=== PATIENT | female | born 1990 | race Caucasian/White ===

== ENCOUNTER 2019-11-22 08:03 | Inpatient (IN) | payer BC ==
[2019-11-22] MEDS ORDERED: Misoprostol TAB* 100 MCG VAGINAL ONE (09:10)
[2019-11-22] MEDS ORDERED: Buffered Lidocaine 1% SYRIN* 1 ML/SYRINGE INTRADERM ONE (09:10)
[2019-11-22] MEDS ORDERED: Lactated Ringers 1000 ML Bag* 1,000 ML IV ONE (09:10)
[2019-11-22 09:55] LABS: Urine Benzodiazepine Screen None Detected (None Detect); Urine Opiates Screen None Detected (None Detect)
--- NOTE | 2019-11-22 11:11 | PTEDU ---
Patient Name: LILLI ESTRELLA LILLI ESTRELLA selected video: Never Ever Shake a Baby to view on 11/22/2019 at 11:11:[address] [id number]
--- NOTE | 2019-11-22 11:38 | PTEDU ---
Patient Name: LILLI ESTRELLA LILLI ESTRELLA selected video: BBOB: Nurturing Your Gorgeous &Growing Baby by to view on 11/22/2019 at 11:37:40 AM [id number]
--- NOTE | 2019-11-22 14:33 | HP ---
General Information - Reason for Visit Pt presents with di/di twins at 38 wks for induction of labor. has been otherwise uncomplicated other than occasional slightly elevated BPs. No complaints today. - General Information Maternal Age: 29 Grav: 1 Para: 0 SAB: 0 IEA: 0 Estimated Due Date: 12/06/19 Determined By: LMP Gestational Age in Weeks/Days: 38+0 Maternal Blood Type and Rh: A Positive - Results this Serology/RPR Result: Non-Reactive Rubella Result: Immune HBsAg Result: Negative HIV Result: Negative GBS Culture Result: Negative Past Medical History Delivery History: See Records - G1 Pertinent Past Medical History: See Records - depression/anxeity Pertinent Past Surgical History: None Pertinent Family History: Non-Contributory - Antepartal Records Antepartal Records: Reviewed, Complicated by: - di/di twins Review of Systems Constitutional: Comfortable CV Complaint: No Respiratory: Shortness of Breath: No Gastrointestinal: No Nausea/Vomiting, Normal Bowel Movement Genitourinary: No Dysuria, No Bleeding, No Leaking Fluid Musculoskeletal: No Complaint Neurological: No Headache Movement: Normal Exam Allergies/Adverse Reactions: Allergies No Known Allergies Allergy (Verified 11/22/19 08:27) BP 140/90 initially, other VS normal Lab Values - Entire Visit: Laboratory Tests 11/22/19 08:11 Urine Opiates Screen None detected Ur Barbiturates Screen None detected Ur Phencyclidine Scrn None detected Ur Amphetamines Screen None detected U Benzodiazepines Scrn None detected Urine Cocaine Screen None detected U Cannabinoids Screen None detected - Measurements Height: 5 ft 4 in Weight: 200 lb Weight in lbs: [id number] Body Mass Index (BMI): 34.3 Pre- Weight: 170 lb Weight Gained This : 30 lbs and 0 ozs - Exam Breast: Breast Exam Deferred CVA: No CVA Tenderness Heart: Normal Rhythm/Heart Sounds HEENT: No Significant Findings Lungs: Clear Bilaterally Rectal: Rectal Exam Deferred - Abdominal Exam Abdomen Exam: Non-Tender, Fundal Height Consistent with Dates - for twins - Ultrasound/Biophysical Profile Ultrasound Status: Bedside Exam Ultrasound Findings: Twins vtx/vtx. A with back to maternal right, B in midline/left. Targeted Exam Findings Estimated Weight: 6.5 and 7 lbs Cervical Exam: Closed Effacement: 70% Station: -2 Presenting Part: Vertex Membrane Status: Intact Bleeding/Discharge: None EFM Findings - External Monitor Findings Baseline Heart Rate: 140 - and 145 External Monitor Findings: Accelerations Present, No Pattern of Variable or Late Decelerations, Variability Moderate, Baseline Stable Contractions: Irregular, Mild Contraction Frequency: irritability Assessment/Plan - Assessment 38 wks EGA with di/di twins, otherwise uncomplicated . Very reassuring status x2, vtx/vtx. Cervix very soft and posterior. Will give one dose of vaginal misoprostol, then likely continue with pitocin. - Obstetrical Risk Factors Risk Factors Comment: Twins - Plan Plan: Cervical Ripening, Admit - Anticipate Vaginal Delivery
[2019-11-22 14:50] LABS: Hematocrit 35 % (35-47); Hemoglobin 11.9 g/dL (12.0-16.0); Mean Corpuscular HGB Conc 34 g/dL (31-36); Mean Corpuscular Hemoglobin 29 pg (27-31); Mean Corpuscular Volume 83 fL (80-97); Mean Platelet Volume 11.1 fL (7.4-10.4); Platelet Count 152 10^3/uL (150-450); Red Blood Count 4.16 10^6 /uL (3.70-4.87); Red Cell Distribution Width 14 % (10-15); White Blood Count 9.4 10^3/uL (3.5-10.8)
[2019-11-22] MEDS ORDERED: Oxytocin in LR* 20 UNITS/1,000 ML BAG IVPB SCH (15:00)
[2019-11-22] MEDS: Lactated Ringers 1000 ML Bag* 1,000 ML IV SCH (15:01)
[2019-11-22 15:07] LABS: Albumin 3.3 g/dL (3.2-5.2); Albumin/Globulin Ratio 1.1 (1-3); BUN/Creatinine Ratio 14.9 (8-20); EGFR African American 124.2 (>60); EGFR Non-African American 102.7 (>60); Potassium 4.2 mmol/L (3.5-5.0); Total Bilirubin 0.4 mg/dL (0.2-1.0); Total Protein 6.3 g/dL (6.4-8.9)
[2019-11-22 16:10] LABS: ABS Lymphocytes 1.9 10^3/ul (1.0-4.8); ABS Monocytes 0.5 10^3/ul (0-0.8); ABS Neutrophils 6.9 10^3/ul (1.5-7.7); Lymphocyte % 20.7 %; Nucleated Red Blood Cells % 0.1
[2019-11-22] MEDS ORDERED: Promethazine INJ(RESTRICTED)* 25 MG/ML 1 ML VIAL IV ONE (22:10)
[2019-11-22] MEDS ORDERED: Morphine 10 MG/ML VIAL (1 ml) IV ONE (22:10)
[2019-11-23] MEDS: Lactated Ringers 1000 ML Bag* 1,000 ML IV SCH (00:05)
[2019-11-23] MEDS ORDERED: Carboprost Tromethamine* 250 MCG INJ ONE (07:42)
[2019-11-23] MEDS ORDERED: fentaNYL* 50 MCG/ML 2 ML VIAL (100 MCG VIAL) ONE (07:49)
[2019-11-23] MEDS ORDERED: Glycerin ADULT SUPP PR PRN (07:54)
[2019-11-23] MEDS ORDERED: Witch Hazel PAD* JAR TOPICAL PRN (07:54)
[2019-11-23] MEDS ORDERED: Acetaminophen TAB* 325 MG PO PRN (07:54)
[2019-11-23] MEDS ORDERED: Dibucaine 1% 28.35 GM TUBE PR PRN (07:54)
[2019-11-23] MEDS ORDERED: Methylergonovine INJ* 0.2 MG/ML 1ML AMP IM ONE (07:54)
[2019-11-23] MEDS ORDERED: Lactated Ringers 1000 ML Bag* 1,000 ML IV SCH (08:00)
[2019-11-23] MEDS ORDERED: Oxytocin in LR* 20 UNITS/1,000 ML BAG IVPB SCH (08:00)
--- NOTE | 2019-11-23 08:27 | PROCNOTE ---
[facility] OB: Delivery Note - Delivery B Date of : 11/23/19 Time of : 07:30 [place] Sex: Female Weight at : 6 lb 6 oz Score 1 Minute: 9 Score 5 Minutes: 9 Gestational Age in Weeks and Days at Delivery: 38 Weeks and 1 Days Delivery Method: Low Vacuum Extraction, Vaginal Labor: Induced Did Patient attempt ?: N/A, No Previous Amniotic Fluid: Clear Estimated Blood Loss: 800 Anesthesia/Analgesia: IM/IV Delivered By: Dina Delgado A Date of : 11/23/19 Time of : 04:42 Sex: Female [place] Weight at : 5 lb 2 oz Score 1 Minute: 9 Score 5 Minutes: 9 Gestational Age in Weeks and Days at Delivery: 38 Weeks and 1 Days Delivery Method: Spontaneous Vaginal Labor: Induced Did Patient attempt ?: N/A, No Previous Amniotic Fluid: Clear Estimated Blood Loss: 800 Anesthesia/Analgesia: IM/IV Delivered By: Dina Delgado - Nursery Level of Nursery: Regular/Bedside - Perineum Perineal Injury: Right Mediolateral Perineal Injury Comment: with extension to vaginal sulcus Perineal Repair: By Delivering Practioner - Events Delivery Events of Note: Pitocin During Labor, Protracted/Long Labor, Post- Bleeding - Meds Given, Pushed > 3 Hours, Internal Scalp EKG - Risk for Falls Delivered OB Patient- Risk for Falls: Heavy Bleeding Fall Risk: Patient is at High Risk for Falls - Additional Delivery Notes Additional Delivery Notes: Pt presented at 38 wks for induction with di/di twins. She received one dose of misoprostol and then IV pitocin. AROM at 4cm with clear fluid. Pt then progressed steadily to C/C and began pushing. She pushed for about 60 min and then was moved to the OR. After about another 30 min, the head delivered in the OA position in a controlled fashion. Shoulders and body followed easily. Cord doubly clamped and cut by father. Ultrasound performed which noted Baby B was still vertex. After a few more contractions, the head was engaged, although high in the pelvis. AROM performed with clear fluid. Pt observed for about an hour with some pushing with ctx, but since the head was coming down very slowly, the decision was made to return pt to her L&D room. FHT continued to be very reassuring. Pt was able to sit up, and after another 90 min, the head had come down to about +2 station. On exam, baby noted to be direct OP and pt was unable to get it down further. We discussed attempting a vacuum delivery, and pt desired to proceed with it. Vacuum placed on head, and with the next 3 or 4 pushes, the head was able to be brought down with additional gentle traction. The cup popped off, but at that point the scalp was at +4. Perineal skin was very tight so a small mediolateral episiotomy was performed where there was already a vaginal lac starting. Head delivered with the next push, direct OA. Shoulders and body followed quickly, and baby cried immediately. Cord doubly clamped and cut by father. Cord blood collected from B's cord. IV pitocin increased. Brisk bleeding noted, seemed to be related to uterine atony, especially the lower segment. Massage given and IM hemabate given. Bleeding improved. Additional 1% lidocaine injected. MLE repaired with 3-0 Vicryl and 3-0 Vicryl Rapide. EBL 800.
[2019-11-23] MEDS ORDERED: Lidocaine 1% INJ* 10 MG/ML 30 ML SDV ONE (10:56)
[2019-11-23] MEDS: Docusate CAP* 100 MG PO SCH ×3 (14:08→21:00)
[2019-11-23] MEDS: Simethicone TAB* 80 MG TAB.CHEW PO SCH (14:10)
[2019-11-24 07:22] LABS: ABS Lymphocytes 2.9 10^3/ul (1.0-4.8); ABS Monocytes 0.9 10^3/ul (0-0.8); ABS Neutrophils 9.8 10^3/ul (1.5-7.7); Eosinophil % 0.1 %; Hematocrit 22 % (35-47); Hemoglobin 7.2 g/dL (12.0-16.0); Mean Corpuscular HGB Conc 34 g/dL (31-36); Mean Corpuscular Hemoglobin 29 pg (27-31); Mean Corpuscular Volume 85 fL (80-97); Mean Platelet Volume 10.4 fL (7.4-10.4); Platelet Count 134 10^3/uL (150-450); Red Blood Count 2.53 10^6 /uL (3.70-4.87); Red Cell Distribution Width 14 % (10-15); White Blood Count 13.5 10^3/uL (3.5-10.8)
[2019-11-24] MEDS: Ibuprofen TAB* 600 MG PO PRN ×3 (09:15→21:54)
[2019-11-24] MEDS: Docusate CAP* 100 MG PO SCH ×3 (09:16→21:53)
[2019-11-24] MEDS: Ferrous Gluconate TAB* 324 MG TAB PO SCH ×2 (09:16→21:53)
[2019-11-25] MEDS: Ibuprofen TAB* 600 MG PO PRN ×3 (04:06→15:37)
[2019-11-25] MEDS: Docusate CAP* 100 MG PO SCH ×2 (09:54→15:36)
[2019-11-25] MEDS: Ferrous Gluconate TAB* 324 MG TAB PO SCH (09:54)
[2019-11-25] MEDS ORDERED: Buffered Lidocaine 1% SYRIN* 1 ML/SYRINGE INTRADERM ONE (10:45)
[2019-11-25 14:24] VITALS: BP 137/74
--- NOTE | 2019-11-25 14:31 | PTEDU ---
Patient Name: LILLI ESTRELLA LILLI ESTRELLA selected video: Follow Me Mum: The To to Successful to view on 0 at 2:30:46 PM from [id number]
--- NOTE | 2019-11-25 14:52 | PTEDU ---
Patient Name: LILLI ESTRELLA LILLI ESTRELLA selected video: BBOB: Bonding Through Massage to view on 11/25/2019 at 2:51:47 P [id number]
[2019-11-25 15:01] LABS: Hematocrit 24 % (35-47); Hemoglobin 8.2 g/dL (12.0-16.0); Mean Corpuscular HGB Conc 34 g/dL (31-36); Mean Corpuscular Hemoglobin 29 pg (27-31); Mean Corpuscular Volume 85 fL (80-97); Mean Platelet Volume 9.4 fL (7.4-10.4); Platelet Count 181 10^3/uL (150-450); Red Blood Count 2.85 10^6 /uL (3.70-4.87); Red Cell Distribution Width 14 % (10-15); White Blood Count 11.6 10^3/uL (3.5-10.8)
== END 2019-11-25 18:45 | disposition home or self-care (01) | DRG 560 ==
LOC: MCHOBOUT 08:03 → MCHOB 09:16
PROVIDERS: ADMIT Obstetrics & Gynecology; ATTEND Obstetrics & Gynecology
PROC: 4A1H74Z Monitoring of Products of Conception, Cardiac Electrical Activity, Via Natural or Artificial Opening (ICD-10-PCS; 2019-11-23)
PROC: 10907ZC Drainage of Amniotic Fluid, Therapeutic from Products of Conception, Via Natural or Artificial Opening (ICD-10-PCS; 2019-11-23)
PROC: 3E033VJ Introduction of Other Hormone into Peripheral Vein, Percutaneous Approach (ICD-10-PCS; 2019-11-23)
PROC: 3E0P7VZ Introduction of Hormone into Female Reproductive, Via Natural or Artificial Opening (ICD-10-PCS; 2019-11-23)
PROC: 4A1HXCZ Monitoring of Products of Conception, Cardiac Rate, External Approach (ICD-10-PCS; 2019-11-23)
PROC: 0W8NXZZ Division of Female Perineum, External Approach (ICD-10-PCS; 2019-11-23)
PROC: 0UQGXZZ Repair Vagina, External Approach (ICD-10-PCS; 2019-11-23)
PROC: 10H073Z Insertion of Monitoring Electrode into Products of Conception, Via Natural or Artificial Opening (ICD-10-PCS; 2019-11-23)
PROC: 30233N1 Transfusion of Nonautologous Red Blood Cells into Peripheral Vein, Percutaneous Approach (ICD-10-PCS; 2019-11-23)
PROC: 10E0XZZ Delivery of Products of Conception, External Approach (ICD-10-PCS; 2019-11-23)
PROC: 10D07Z6 Extraction of Products of Conception, Vacuum, Via Natural or Artificial Opening (ICD-10-PCS; principal; 2019-11-23 04:22)
DX: O13.4 Gestational [pregnancy-induced] hypertension without significant proteinuria, complicating childbirth (principal); Z37.2 Twins, both liveborn; O30.043 Twin pregnancy, dichorionic/diamniotic, third trimester; Z3A.38 38 weeks gestation of pregnancy; O90.81 Anemia of the puerperium; O72.1 Other immediate postpartum hemorrhage; O63.9 Long labor, unspecified; O71.4 Obstetric high vaginal laceration alone; Z28.21 Immunization not carried out because of patient refusal
CPT/HCPCS: 36415; 76815; 80053; 80307; 85025; 85027; 86850; 86900; 86901; 86922; A9270-GY; G0480; J2270; J2550; J3010; P9040; S0191